=== PATIENT | female | born 1960 | race Hispanic/Latino ===

== ENCOUNTER 2017-03-15 11:48 | Outpatient (CLI) | payer BC | END 2017-03-15 11:49 | disposition home or self-care (01) | LOC: BICMAMMO 11:48 | PROVIDERS: ATTEND Nurse Practitioner Family | DX: Z12.31 Encounter for screening mammogram for malignant neoplasm of breast (principal) | CPT/HCPCS: 77063; 77067 ==

== ENCOUNTER 2018-11-30 13:28 | Outpatient (CLI) | payer BC ==
--- NOTE | 2018-11-30 14:11 | MMO ---
Bilateral MAMMO Bilat Screen [facility]. CLINICAL HISTORY: Patient is 57 years old and is seen for screening. The patient has no family history of breast cancer. The patient has no personal history of cancer. VIEWS: The views performed were: bilateral craniocaudal with tomosynthesis and bilateral mediolateral oblique with tomosynthesis. FILMS COMPARED: The present examination has been compared to a prior imaging study performed at [facility] on 03/15/2017. This study has been interpreted with the assistance of computer-aided detection. MAMMOGRAM FINDINGS: There are scattered fibroglandular densities. There are no suspicious masses, suspicious calcifications, or new areas of architectural distortion. IMPRESSION: THERE IS NO MAMMOGRAPHIC EVIDENCE OF MALIGNANCY. A ROUTINE FOLLOW-UP MAMMOGRAM IN 1 YEAR IS RECOMMENDED. THE RESULTS OF THIS EXAM WERE SENT TO THE PATIENT. ACR BI-RADS Category 1 - Negative MAMMOGRAPHY NOTE: 1. A negative mammogram report should not delay a biopsy if a dominant of clinically suspicious mass is present. 2. Approximately 10% to 15% of breast cancers are not detected by mammography. 3. Adenosis and dense breasts may obscure an underlying neoplasm. Reported by: DELFINO MCGEE MD Electonically Signed: [id number]
== END 2018-11-30 13:29 | disposition home or self-care (01) ==
LOC: BICMAMMO 13:28
PROVIDERS: ATTEND Nurse Practitioner Family
DX: Z12.31 Encounter for screening mammogram for malignant neoplasm of breast (principal)
CPT/HCPCS: 77063; 77067

== ENCOUNTER 2024-03-12 10:24 | Day surgery (SDC) | payer BC ==
[2024-03-11 11:06] VITALS: BMI 27.5
[~2024-03-12 10:24] MED LIST: EPINEPHrine 0.3 MG in Ophthalmic Irrigation Solution 500 ML IRR SCH
[2024-03-12 10:57] LABS: Anion Gap 13 mmol/L (10-20); BUN (Urea Nitrogen) 17 mg/dL (9.8-20.1); Calc. Creatinine Clearance 86 mL/min (70-130); Calcium 9.6 mg/dL (7.8-10.44); Carbon Dioxide 27 mmol/L (23-31); Chloride 106 mmol/L (98-107); Estimated GFR 99; Glucose 161 mg/dL (80-115); Potassium 4.6 mmol/L (3.5-5.1); Sodium 141 mmol/L (136-145)
[2024-03-12] MEDS ORDERED: PHENYLephrine 2.5% Ophth Soln 15 ml Bottle ONE (11:13)
[2024-03-12] MEDS ORDERED: Cyclopentolate 1% Opth Drop 2 ML BOT ONE (11:13)
[2024-03-12] MEDS ORDERED: Midazolam HCl 2 mg/2 ml Vial ONE (12:02)
[2024-03-12] MEDS ORDERED: fentaNYL 50 mcg/mL 1 mL Vial ONE (12:02)
[2024-03-12] MEDS ORDERED: CEFAZOLIN 1 GM VIAL ONE (12:14)
[2024-03-12] MEDS ORDERED: Lidocaine 1% PF 5 ML VIAL ONE (12:14)
[2024-03-12] MEDS ORDERED: PROPOFOL 200 MG/20 ML VIAL ONE (12:14)
[2024-03-12] MEDS ORDERED: Bupivacaine 0.75% 10 ML VIAL ONE (12:14)
[2024-03-12] MEDS ORDERED: Triamcinolone 40 MG/ML VIAL ONE (12:14)
[2024-03-12] MEDS ORDERED: Lidocaine 4% PF 5 ML AMP ONE (12:14)
[2024-03-12] MEDS ORDERED: Maxitrol 0.1% Opth Oint 3.5 GM TUBE ONE (12:14)
== END 2024-03-12 13:33 | disposition home or self-care (01) ==
LOC: SDC 10:24
PROVIDERS: ATTEND Ophthalmology Retina Specialist
PROC: 08T53ZZ Resection of Left Vitreous, Percutaneous Approach (ICD-10-PCS; principal; 2024-03-12)
DX: H43.12 Vitreous hemorrhage, left eye (principal); H43.812 Vitreous degeneration, left eye; I10 Essential (primary) hypertension; K21.9 Gastro-esophageal reflux disease without esophagitis; D64.9 Anemia, unspecified; E11.9 Type 2 diabetes mellitus without complications; F32.A Depression, unspecified; Z79.899 Other long term (current) drug therapy
CPT/HCPCS: 80048; 93005; 93010; J0171; J0690; J2250; J2704; J3010; J3301; J3490